=== PATIENT | male | born 1935 | race Caucasian/White ===

== ENCOUNTER → 2017-07-12 | Outpatient (CLI) | payer MEDICARE, OTHER ==
[~2017-07-12] MED LIST: AMLO5TAB2 PO; ASPI-496 PO; ASPI-650 PO; CYCL100C12 PO; CYCL50TA PO; EZET10TA18 PO; FAMO20TA7 PO; FINA5TAB4 PO; FURO40TA6 PO; IRBE150T49 PO; IRBE75TA31 PO; OMEG1CAP6 PO; PRED10TA PO; SIME80TA14 PO; SPIR25TA3 PO
== END | disposition home or self-care (01) ==
LOC: CVU 15:49
PROVIDERS: ATTEND Internal Medicine Cardiovascular Disease
DX: I35.8 Other nonrheumatic aortic valve disorders (principal); I10 Essential (primary) hypertension; I25.10 Atherosclerotic heart disease of native coronary artery without angina pectoris; I51.7 Cardiomegaly; Z95.1 Presence of aortocoronary bypass graft
CPT/HCPCS: 93306

== ENCOUNTER → 2018-03-11 | Outpatient (CLI) | payer MEDICARE, OTHER | END | disposition home or self-care (01) | LOC: CFH 11:19 | PROVIDERS: ATTEND Nurse Practitioner Family | DX: K21.9 Gastro-esophageal reflux disease without esophagitis (principal); K44.9 Diaphragmatic hernia without obstruction or gangrene | CPT/HCPCS: 74220 ==

== ENCOUNTER → 2018-05-02 | Outpatient (CLI) | payer MEDICARE, OTHER ==
[~2018-05-02] MED LIST changes: +REGADENOSON 0.4 MG/5 ML SYRINGE ONE
== END | disposition home or self-care (01) ==
LOC: RAD 11:19
PROVIDERS: ATTEND Internal Medicine Cardiovascular Disease
DX: I25.10 Atherosclerotic heart disease of native coronary artery without angina pectoris (principal); I44.0 Atrioventricular block, first degree
CPT/HCPCS: 78452; 93017; A9502; J2785

== ENCOUNTER 2018-12-18 10:17 | Emergency (ER) | payer MEDICARE, OTHER ==
[~2018-12-18] VITALS: Ht 190.5 cm; Wt 108.0 kg
[~2018-12-18 10:17] MED LIST changes: +AMLO-150 PO; -AMLO5TAB2 PO; -REGADENOSON 0.4 MG/5 ML SYRINGE ONE; -SPIR25TA3 PO; +SPIR25TA5 PO
[2018-12-18] MEDS ORDERED: HYDR-3343 PO (11:20)
--- NOTE | 2018-12-18 11:22 | NUR ---
ESCORTED PATIENT BACK TO ROOM 34. PT CHANGED INTO GOWN. WARM BLANKET PROVIDED. PATIENT ON CONTINUOUS CARDIAC AND SPO2 MONITORS AND BP CUFF. DR. CROSS AT BEDSIDE.
[2018-12-18] MEDS ORDERED: MYCO500T3 PO (11:26)
[2018-12-18] MEDS ORDERED: OMEP-110 PO (11:27)
[2018-12-18 11:36] LABS: BASOPHILS # (AUTO) 0.02 x10^3/uL (0-0.1); BASOPHILS % (AUTO) 1 % (0-1); EOSINOPHILS # (AUTO) 0.13 x10^3/uL (0-0.4); EOSINOPHILS % (AUTO) 4 % (1-7); LYMPHOCYTES # (AUTO) 0.67 x10^3/uL (1-3.4); LYMPHOCYTES % (AUTO) 19 % (22-44); MD NO; MEAN CORPUSCULAR HEMOGLOBIN 29.8 pg (27.5-34.5); MEAN CORPUSCULAR HGB CONC 33.1 g/dL (33.2-36.2); MEAN CORPUSCULAR VOLUME 90.2 fL (81-97); MEAN PLATELET VOLUME 7.8 fL (7.4-10.4); MONOCYTES # (AUTO) 0.29 x10^3/uL (0.2-0.8); MONOCYTES % (AUTO) 8 % (2-9); NEUTROPHILS # (AUTO) 2.41 x10^3/uL (1.8-6.8); NEUTROPHILS % (AUTO) 69 % (42-75); PLATELET COUNT 154 x10^3/uL (130-400); RED BLOOD COUNT 3.19 x10^6/uL (4.38-5.82); RED CELL DISTRIBUTION WIDTH 13.8 % (9.4-14.8)
[2018-12-18 11:47] LABS: ALBUMIN 2.9 g/dL (3.4-5.0); ANION GAP 7 mmol/L (5-15); CALCIUM 8.3 mg/dL (8.5-10.1); CHLORIDE 117 mmol/L (98-107); CREATININE 2.31 mg/dL (0.7-1.3)
[2018-12-18 12:37] VITALS: BP 169/84
--- NOTE | 2018-12-18 12:37 | NUR ---
Patient/Caregiver given discharge instructions and they have confirmed that they understand the instructions. Patient ambulatory with steady gait.
== END 2018-12-18 12:38 | disposition home or self-care (01) ==
LOC: ED 12:28
DX: E86.0 Dehydration (principal); I12.9 Hypertensive chronic kidney disease with stage 1 through stage 4 chronic kidney disease, or unspecified chronic kidney disease; N18.9 Chronic kidney disease, unspecified; I25.10 Atherosclerotic heart disease of native coronary artery without angina pectoris
CPT/HCPCS: 36415; 80048; 82040; 85025; 93005; 99284

== ENCOUNTER 2020-04-21 18:34 | Inpatient (IN) | payer MEDICARE, OTHER ==
[~2020-04-21] VITALS: Ht 190.5 cm; Wt 114.2 kg
[~2020-04-21 18:34] MED LIST changes: -EZET10TA18 PO; +EZET10TA70 PO; +HYDR-3343 PO; +MYCO500T3 PO; +OMEP-110 PO
[2020-04-21] MEDS ORDERED: SODIUM CHLORIDE FLUSH 10ML SYR IVF ONE (19:30)
[2020-04-21] MEDS ORDERED: SODIUM CHLORIDE 0.9% 1,000ML IVBOLUS ONE (19:30)
[2020-04-21] MEDS ORDERED: HYDROmorphone 1 MG/ML, 1ML INJ ONE ×3 (19:34→20:58)
[2020-04-21] MEDS: HYDROmorphone 1 MG/ML, 1ML INJ IVPush PRN ×2 (19:48→20:31)
--- NOTE | 2020-04-21 19:53 | NUR ---
PT ATTEMPTED TO POVIDE A URINE SAMPLE. ONLY ABLE TO URINATE A FEW DROPS AT THIS TIME. 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 IV STARTED, LABS AND CULTURES DRAWN AND SENT, PT MEDICATED PER MAR, FLUIDS INFUSING. PT DENIES ANY FURTHER NEEDS OR CONCERNS AT THIS TIME. CALL LIGHT IN REACH.
[2020-04-21 20:00] LABS: BASOPHILS # (AUTO) 0.01 x10^3/uL (0-0.1); BASOPHILS % (AUTO) 0 % (0-1); EOSINOPHILS # (AUTO) 0.01 x10^3/uL (0-0.4); EOSINOPHILS % (AUTO) 0 % (1-7); LYMPHOCYTES # (AUTO) 0.27 x10^3/uL (1-3.4); LYMPHOCYTES % (AUTO) 3 % (22-44); MD NO; MEAN CORPUSCULAR HEMOGLOBIN 29.1 pg (27.5-34.5); MEAN CORPUSCULAR HGB CONC 31.8 g/dL (33.2-36.2); MEAN PLATELET VOLUME 7.5 fL (7.4-10.4); MONOCYTES # (AUTO) 0.53 x10^3/uL (0.2-0.8); MONOCYTES % (AUTO) 6 % (2-9); NEUTROPHILS # (AUTO) 7.61 x10^3/uL (1.8-6.8); NEUTROPHILS % (AUTO) 91 % (42-75); PLATELET COUNT 147 x10^3/uL (130-400); RED BLOOD COUNT 4.05 x10^6/uL (4.38-5.82); RED CELL DISTRIBUTION WIDTH 14.1 % (9.4-14.8)
--- NOTE | 2020-04-21 20:09 | NUR ---
SON'S NUMBER FOR POINT OF CARE CONTACT [facility] [phone].
[2020-04-21 20:12] LABS: ALANINE AMINOTRANSFERASE 13 U/L (12-78); ALBUMIN 3.7 g/dL (3.4-5.0); ANION GAP 8 mmol/L (5-15); CALCIUM 8.8 mg/dL (8.5-10.1); CHLORIDE 114 mmol/L (98-107); CREATININE 2.77 mg/dL (0.7-1.3)
[2020-04-21 20:15] LABS: ALKALINE PHOSPHATASE 69 U/L (45-117); BILIRUBIN,TOTAL 0.8 mg/dL (0.2-1.0); TOTAL PROTEIN 7.5 g/dL (6.4-8.2)
[2020-04-21] MEDS ORDERED: KETOROLAC 30 MG/1 ML ONE (20:48)
[2020-04-21 20:58] LABS: MICROSCOPIC INDICATED
[2020-04-21] MEDS ORDERED: KETOROLAC 30 MG/1 ML IVPush ONE (21:00)
[2020-04-21] MEDS ORDERED: HYDROmorphone 2 MG/ML, 1ML IVPush PRN (21:00)
[2020-04-21] MEDS ORDERED: CEFTRIAXONE PMX 1GM/50ML 50 ML IVPB ONE (21:30)
[2020-04-21] MEDS ORDERED: CEFTRIAXONE PMX 1GM/50ML 50 ML ONE (21:55)
--- NOTE | 2020-04-21 22:24 | NUR ---
HOSPITALIST AT BEDSIDE. REPORT CALLED TO ANITRA LANGFORD. HOSPITALIST NOTIFIED THIS NURSE THAT PT IS ON CARDIAC FRIENDLY DIET UNTIL MIDNIGHT TONIGHT WHEN HE WILL BE NPO. PT UPDATED ON PLAN OF CARE, VERBALIZES UNDERSTANDING, DENIES ANY NEEDS. CALL LIGHT IN REACH. AWAITING TRANSPORT AT THIS TIME.
[2020-04-21] MEDS ORDERED: ONDANSETRON 2MG/ML, 2ML IVPush PRN (22:30)
[2020-04-21] MEDS ORDERED: hydrALAzine 20 MG/ML, 1ML IVPush PRN (22:30)
[2020-04-21] MEDS ORDERED: SODIUM CHLORIDE 0.9% 1,000 ML IV SCH (22:30)
[2020-04-21] MEDS ORDERED: TEMAZEPAM 15 MG CAPSULE PO PRN (22:30)
[2020-04-21] MEDS ORDERED: SPIRONOLACTONE 25 MG TABLET PO PRN (22:30)
[2020-04-21] MEDS ORDERED: ACETAMINOPHEN 325 MG TABLET PO PRN (22:30)
[2020-04-21] MEDS ORDERED: METHOCARBAMOL 500 MG TABLET PO PRN (22:30)
[2020-04-21] MEDS ORDERED: morphine SULFATE 10 MG/ML, 1ML IVPush PRN (22:30)
[2020-04-21] MEDS ORDERED: KETOROLAC 30 MG/1 ML IV PRN (22:30)
[2020-04-21] MEDS: ASPIRIN 325 MG TABLET EC PO SCH (22:30)
[2020-04-21] MEDS ORDERED: DOCUSATE 100 MG CAPSULE PO PRN (22:30)
[2020-04-21] MEDS ORDERED: HYDROcodone/APAP 5/325 TABLET PO PRN (22:30)
[2020-04-21] MEDS ORDERED: FAMOTIDINE 20 MG/2 ML IVPush SCH (22:30)
[2020-04-21] MEDS ORDERED: ONDANSETRON 2MG/ML, 2ML ONE (22:32)
[2020-04-21 23:07] VITALS: BP 130/74
[2020-04-21] MEDS: IRBESARTAN 150 MG TABLET PO SCH (23:35)
[2020-04-21] MEDS: FINASTERIDE 5 MG TABLET PO SCH (23:36)
[2020-04-22 02:17] VITALS: BP 159/85
[2020-04-22 04:28] LABS: MEAN CORPUSCULAR HEMOGLOBIN 29.8 pg (27.5-34.5); MEAN CORPUSCULAR HGB CONC 32.7 g/dL (33.2-36.2); MEAN PLATELET VOLUME 7.9 fL (7.4-10.4); PLATELET COUNT 121 x10^3/uL (130-400); RED BLOOD COUNT 3.63 x10^6/uL (4.38-5.82); RED CELL DISTRIBUTION WIDTH 14.3 % (9.4-14.8)
[2020-04-22 04:33] LABS: % IRON SATURATION 6 % (20-55); ANION GAP 7 mmol/L (5-15); CALCIUM 8.1 mg/dL (8.5-10.1); CHLORIDE 116 mmol/L (98-107); CREATININE 3.04 mg/dL (0.7-1.3); IRON LEVEL 16 mcg/dL (65-175); TOTAL IRON BINDING CAPACITY 288 mcg/dL (250-450)
[2020-04-22 04:47] LABS: BASOPHILS % (AUTO) 0 % (0-1); EOSINOPHILS % (AUTO) 0 % (1-7); LYMPHOCYTES # (AUTO) 0.08 x10^3/uL (1-3.4); LYMPHOCYTES % (AUTO) 1 % (22-44); MD SCAN; MONOCYTES # (AUTO) 0.03 x10^3/uL (0.2-0.8); MONOCYTES % (AUTO) 1 % (2-9); NEUTROPHILS # (AUTO) 6.46 x10^3/uL (1.8-6.8); NEUTROPHILS % (AUTO) 98 % (42-75)
[2020-04-22 04:55] LABS: TRANSFERRIN 224 mg/dL (200-360)
[2020-04-22] MEDS ORDERED: morphine SULFATE 10 MG/ML, 1ML IVPush PRN (07:30)
[2020-04-22] MEDS ORDERED: OXYcodone IR 5MG TABLET PO PRN (07:30)
[2020-04-22] MEDS ORDERED: ACETAMINOPHEN 325 MG TABLET PO PRN (07:30)
[2020-04-22] MEDS: HEPARIN 5,000 UNITS/ML, 1ML SQ SCH ×2 (07:30→15:30)
[2020-04-22 08:23] VITALS: BP 109/70
[2020-04-22] MEDS: LACTOBACILLUS CHEW TABLET PO SCH ×3 (09:44→22:13)
[2020-04-22] MEDS ORDERED: CHLORHEXIDINE 15 ML UDC MM ONE (12:05)
[2020-04-22] MEDS ORDERED: CHLORHEXIDINE 15 ML UDC ONE (12:07)
[2020-04-22] MEDS ORDERED: PROPOFOL 10 MG/ML, 20ML ONE (12:23)
[2020-04-22] MEDS ORDERED: FENTANYL PF 250 MCG/5ML ONE (12:23)
[2020-04-22] MEDS ORDERED: SUCCINYLCHOLINE 20 MG/ML, 10ML ONE (12:23)
[2020-04-22] MEDS ORDERED: CEFAZOLIN 1,000 MG ONE (13:18)
[2020-04-22] MEDS ORDERED: ONDANSETRON 2MG/ML, 2ML ONE (13:20)
[2020-04-22] MEDS ORDERED: DEXAMETHASONE 4 MG/ML, 1ML ONE (13:20)
[2020-04-22] MEDS ORDERED: PHENYLEPHRINE 10 MG/ML ONE (13:28)
[2020-04-22] MEDS ORDERED: PROMETHAZINE 25 MG/ML, 1ML IVPush PRN (13:30)
[2020-04-22] MEDS ORDERED: ONDANSETRON 2MG/ML, 2ML IVPush PRN (13:30)
[2020-04-22] MEDS ORDERED: HYDROmorphone 1 MG/ML, 1ML INJ IVPush PRN (13:30)
[2020-04-22] MEDS ORDERED: OXYcodone 5 MG/5 ML ORAL.SOL UDC PO PRN (13:30)
[2020-04-22] MEDS ORDERED: LABETALOL 5MG/ML, 20ML IV PRN (13:30)
[2020-04-22] MEDS ORDERED: hydrALAzine 20 MG/ML, 1ML IV PRN (13:30)
[2020-04-22] MEDS ORDERED: FENTANYL PF 100 MCG/2ML IV PRN (13:30)
[2020-04-22 18:37] VITALS: BP 121/69
[2020-04-22] MEDS ORDERED: SENNOSIDES 8.6 MG TABLET PO SCH (21:00)
[2020-04-22] MEDS ORDERED: CEFTRIAXONE PMX 1GM/50ML 50 ML IV SCH (21:30)
[2020-04-22] MEDS: FINASTERIDE 5 MG TABLET PO SCH (22:13)
[2020-04-22] MEDS: IRBESARTAN 150 MG TABLET PO SCH (22:14)
[2020-04-22] MEDS: ASPIRIN 325 MG TABLET EC PO SCH (22:14)
[2020-04-22] MEDS ORDERED: SODIUM CHLORIDE 0.9% 1,000 ML IV SCH (22:30)
[2020-04-23 00:18] VITALS: BP 102/63
[2020-04-23] MEDS: HEPARIN 5,000 UNITS/ML, 1ML SQ SCH ×2 (00:25→08:36)
[2020-04-23 05:45] LABS: ANION GAP 5 mmol/L (5-15); CALCIUM 8.3 mg/dL (8.5-10.1); CHLORIDE 119 mmol/L (98-107); CREATININE 2.52 mg/dL (0.7-1.3)
[2020-04-23 06:12] LABS: MEAN CORPUSCULAR HEMOGLOBIN 30.2 pg (27.5-34.5); MEAN PLATELET VOLUME 8.4 fL (7.4-10.4); PLATELET COUNT 115 x10^3/uL (130-400); RED BLOOD COUNT 2.98 x10^6/uL (4.38-5.82); RED CELL DISTRIBUTION WIDTH 14.2 % (9.4-14.8)
[2020-04-23 06:36] LABS: BASOPHILS % (AUTO) 0 % (0-1); EOSINOPHILS % (AUTO) 0 % (1-7); LYMPHOCYTES % (AUTO) 4 % (22-44); MD SCAN; MONOCYTES # (AUTO) 0.67 x10^3/uL (0.2-0.8); MONOCYTES % (AUTO) 7 % (2-9); NEUTROPHILS # (AUTO) 8.55 x10^3/uL (1.8-6.8); NEUTROPHILS % (AUTO) 89 % (42-75)
[2020-04-23 06:38] VITALS: BP 113/70
[2020-04-23] MEDS ORDERED: FERROUS SULFATE 325 MG TABLET PO SCH (07:30)
[2020-04-23] MEDS: LACTOBACILLUS CHEW TABLET PO SCH (08:35)
[2020-04-23] MEDS ORDERED: FERR-51 PO (10:37)
[2020-04-23] MEDS ORDERED: ACID1TAB7 PO (10:37)
[2020-04-23] MEDS ORDERED: CEFD300C37 PO (10:41)
[2020-04-23 13:31] VITALS: BP 116/65
== END 2020-04-23 15:35 | disposition home or self-care (01) | DRG 670 ==
LOC: ED 20:32 → EDIP 21:30 → OBSVTOIN 21:30 → INTOOBSV 21:30 → 3N 22:51 → DCLOUNGE 04-23 15:27
PROVIDERS: ADMIT Internal Medicine; ATTEND Internal Medicine
PROC: 0T5B8ZZ Destruction of Bladder, Via Natural or Artificial Opening Endoscopic (ICD-10-PCS; 2020-04-22)
PROC: 0T767DZ Dilation of Right Ureter with Intraluminal Device, Via Natural or Artificial Opening (ICD-10-PCS; principal; 2020-04-22 11:45)
DX: N13.6 Pyonephrosis (principal); N18.4 Chronic kidney disease, stage 4 (severe); I25.10 Atherosclerotic heart disease of native coronary artery without angina pectoris; N40.1 Benign prostatic hyperplasia with lower urinary tract symptoms; E78.5 Hyperlipidemia, unspecified; I12.9 Hypertensive chronic kidney disease with stage 1 through stage 4 chronic kidney disease, or unspecified chronic kidney disease; G62.9 Polyneuropathy, unspecified; D64.9 Anemia, unspecified; E66.9 Obesity, unspecified; N28.1 Cyst of kidney, acquired; Z88.8 Allergy status to other drugs, medicaments and biological substances; Z20.828 Contact with and (suspected) exposure to other viral communicable diseases; Z79.899 Other long term (current) drug therapy; Z68.35 Body mass index [BMI] 35.0-35.9, adult
CPT/HCPCS: 36415; 74018; 74176; 76000; 80048; 80053; 81001; 82607; 82728; 83540; 83550; 83605; 84466; 85025; 87040; 87086; 87635; 93005; 96361; 96374; 96375; 96376; 99285; G0378; J0690; J0696; J1100; J1170; J1644; J2405; J2704; J3010; C1758; C1769; C2617; J0330; J2370; J3490; J7030; J7517

== ENCOUNTER → 2020-07-07 | Outpatient (CLI) | payer MEDICARE, OTHER ==
[~2020-07-07] MED LIST changes: +ACID1TAB7 PO; +CEFD300C37 PO; +FERR-51 PO
== END | disposition home or self-care (01) ==
LOC: CVU 14:36
PROVIDERS: ATTEND Internal Medicine Cardiovascular Disease
DX: I08.0 Rheumatic disorders of both mitral and aortic valves (principal); I48.91 Unspecified atrial fibrillation; E78.5 Hyperlipidemia, unspecified; Z95.1 Presence of aortocoronary bypass graft; Z79.01 Long term (current) use of anticoagulants; Z87.891 Personal history of nicotine dependence
CPT/HCPCS: 93306